=== PATIENT | male | born 1950 | race Caucasian/White ===

== ENCOUNTER 2017-07-08 18:58 | Observation (INO) | payer MEDICARE, OTHER ==
--- NOTE | 2017-07-08 20:06 | EDM.PDOC ---
ED HPI GENERAL MEDICAL PROBLEM - General Chief Complaint: Neuro Symptoms/Deficits Stated Complaint: DIZZINESS Time Seen by Provider: 07/08/17 19:36 Source of Information: Reports: Patient, Old Records, RN Notes Reviewed History Limitations: Reports: No Limitations - History of Present Illness INITIAL COMMENTS - FREE TEXT/NARRATIVE: 66-year-old male, brought in by his neighbor Chief complaint "Dizziness" History of present illness 66-year-old male, history of hypertension for which she is on medication, lives by himself, had onset of symptoms about 1 PM when he got up to go to the bathroom. He noted that he felt a bit off balance and he had some troubles focusing with his eyes. However no significant headache or fever. He was able to drive himself 20 miles to [employer] [place]. He drove much slower than usual and that troubles focusing his eyes on the road. In retrospect he realizes he should not have drive. While he was at the school board meeting, his neighbor/friend saw that he was having troubles expressing himself he was quieter than usual and he seemed to be unsteady on his feet. He recommended he come into the emergency room to be checked. He's had some cold symptoms for the last 2 weeks including some nasal congestion mild cough in the last few days maybe fever at the very beginning of his illness and some sweating spells then but none since. Breathing has been normal no shortness of breath no chest pain no abdominal pain nausea vomiting or diarrhea. History includes transurethral resection for years ago, he was found to have stage I cancer the needed no further treatment, he was followed by urology regularly until it was clear that he needed no further follow-up. He's had left recurrent shoulder dislocation repair. When he did undergo his transurethral resection for years ago, there was a brief episode of some sort of arrhythmia which resolved itself. He does know what was specifically. No history of stroke or heart disease otherwise - Related Data Allergies Allergy/AdvReac Type Severity Reaction Status Date / Time enviromental Allergy Other Uncoded 07/08/17 19:15 Home Meds: Home Meds Acetaminophen 1,000 mg PO ASDIRECTED PRN 05/06/16 [History] Aspirin [Children's Aspirin] 81 mg PO DAILY 05/06/16 [History] Atenolol [Atenolol] 25 mg PO DAILY 05/06/16 [History] Flaxseed Oil [Flaxseed] 1,000 mg PO DAILY 05/06/16 [History] Garlic 10 mg PO DAILY 05/06/16 [History] Glucosa Benoit 2KCl/Chondroitin Benoit [Glucosamine-Chondroitin Cap] 1 tab PO DAILY [History] HCTZ/Triamterene [Maxzide 25-37.5 MG] 1 tab PO DAILY 05/06/16 [History] Indomethacin [Indocin SR] 75 mg PO ASDIRECTED PRN 05/06/16 [History] Lovastatin 40 mg PO DAILY 05/06/16 [History] Multivit-Min/FA/Lycopene/Lut [Centrum Silver Tablet] 1 tab PO DAILY 05/06/16 [ History] *Lisinopril 07/08/17 [History] Aspirin [Obed Chewable Aspirin] 81 mg PO DAILY 07/08/17 [History] Past Medical History Cardiovascular History: Reports: High Cholesterol, Hypertension Gastrointestinal History: Reports: None Genitourinary History: Reports: BPH Musculoskeletal History: Reports: Arthritis, Gout Oncologic (Cancer) History: Reports: Prostate - Past Surgical History GI Surgical History: Reports: Colonoscopy Male Surgical History: Reports: Prostate Biopsy, Prostatectomy, TURP- Transurethral Resection of Prostate Social & Family History - Tobacco Use Smoking Status *Q: Unknown Ever Smoked - Caffeine Use Caffeine Use: Reports: Coffee - Alcohol Use Days Per Week of Alcohol Use: 3 Number of Drinks Per Day: 2 Total Drinks Per Week: 6 - Recreational Drug Use Recreational Drug Use: No ED ROS GENERAL - Review of Systems Review Of Systems: See Below Constitutional: Denies: Fever, Chills, Weakness, Decreased Appetite HEENT: Reports: Rhinitis, Vision Change. Denies: Ear Discharge, Ear Pain, Throat Pain, Vertigo Respiratory: Reports: Cough (Mild). Denies: Shortness of Breath, Wheezing, Pleuritic Chest Pain Cardiovascular: Reports: Blood Pressure Problem (Usually quite stable, it is higher tonight than usual), Lightheadedness. Denies: Chest Pain, Edema, Palpitations, Syncope Endocrine: Reports: No Symptoms GI/Abdominal: Reports: No Symptoms. Denies: Abdominal Pain, Diarrhea, Decreased Appetite, Nausea, Vomiting : Reports: Incontinence (Occasional, mild since his surgery). Denies: Dysuria , Flank Pain Musculoskeletal: Reports: No Symptoms Skin: Reports: No Symptoms Neurological: Reports: Dizziness (By which she means feeling off balance some difficulties walking and some lightheadedness, no spinning sensation), Difficulty Walking (Some feeling of being off balance). Denies: Confusion, Headache, Numbness, Paresthesia, Seizure, Syncope, Tingling, Trouble Speaking, Change in Speech, Gait Disturbance Psychiatric: Reports: No Symptoms Hematologic/Lymphatic: Reports: No Symptoms Immunologic: Reports: No Symptoms ED EXAM, GENERAL - Physical Exam Exam: See Below Exam Limited By: No Limitations General Appearance: Alert, Anxious, Mild Distress, Other (Pleasant alert and appears well, the pulse is tachycardic any irregular and his blood pressure shows mild elevation of up to 153/100) Eye Exam: Bilateral Eye: EOMI, Normal Fundi, Normal Inspection, Vision Changes ( Left-sided hemianopsia both eyes on confrontation) Ears: Normal External Exam, Normal Canal, Hearing Grossly Normal, Normal TMs Ear Exam: Bilateral Ear: Auricle Normal Nose: Normal Inspection, Normal Mucosa Throat/Mouth: Normal Inspection, Normal Oropharynx, Other (Signs of dental wearing but no acute infection) Head: Atraumatic, Normocephalic, Other (No facial swelling or droop). No: Facial Swelling Neck: Normal Inspection, Supple, Non-Tender. No: Carotid Bruit, Lymphadenopathy (R), Lymphadenopathy (L), Tender Lateral, Tender Midline Respiratory/Chest: No Respiratory Distress, Lungs Clear, Normal Breath Sounds, No Accessory Muscle Use Cardiovascular: Irregularly Irregular GI/Abdominal: Normal Bowel Sounds, Soft, Non-Tender Back Exam: Normal Inspection. No: CVA Tenderness (R), CVA Tenderness (L) Extremities: Normal Inspection, Non-Tender, No Pedal Edema Neurological: Alert, Oriented, Other (Symmetrical strength, Normal arm and leg movements, No facial droop,Finger nose finger testing normal, hemianopsia both eyes left visual field tested together or singly, by confrontation). No: Confused, Disoriented, Slow to Respond, Abnormal Reflexes Psychiatric: Normal Affect, Normal Mood Skin Exam: Warm, Dry, Intact, Normal Color, No Rash Lymphatic: No Adenopathy Course - Vital Signs Last Recorded V/S: Last Vital Signs Temp 36.6 C 07/08/17 19:13 Pulse 107 H 07/08/17 22:04 Resp 20 07/08/17 22:04 BP 144/98 H 07/08/17 22:04 Pulse Ox 98 07/08/17 22:04 - Orders/Labs/Meds Orders: Active Orders 24 hr Category Date Time Status EKG Documentation Completion [RC] ASDIRECTED Care 07/08/17 20:00 Active Ang Head [CT] Stat Exams 07/08/17 20:58 Taken Head wo Cont [CT] Stat Exams 07/08/17 20:00 Taken Iopamidol [Isovue-370 (76%)] Med 07/08/17 21:15 Active 80 ml IV . DIRECTED Sodium Chloride 0.9% [Normal Saline] 40 ml Med 07/08/17 21:15 Active IV ASDIRECTED EKG 12 Lead [EK] Routine Ther 07/08/17 19:59 Ordered Medication Orders Sodium Chloride (Normal Saline) 40 mls @ 3 mls/sec IV ASDIRECTED CULLEN Last Admin: 07/08/17 21:27 Dose: 3 mls/sec Iopamidol (Isovue-370 (76%)) 80 ml IV . DIRECTED CULLEN Last Admin: 07/08/17 21:27 Dose: 80 ml Labs: Laboratory Tests 07/08/17 07/08/17 Range/Units 19:59 19:59 WBC 7.7 (4.5-11.0) K/uL RBC 4.91 (4.30-5.90) M/uL Hgb 14.2 (12.0-15.0) g/dL Hct 43.0 (40.0-54.0) % MCV 88 (80-98) fL MCH 29 (27-31) pg MCHC 33 (32-36) % Plt Count 241 (150-400) K/uL Sodium 143 (140-148) mmol/L Potassium 4.8 (3.6-5.2) mmol/L Chloride 108 (100-108) mmol/L Carbon Dioxide 20 L (21-32) mmol/L Anion Gap 19.8 H (5.0-14.0) mmol/L BUN 38 H (7-18) mg/dL Creatinine 1.6 H (0.8-1.3) mg/dL Est Cr Clr Drug Dosing 48.50 mL/min Estimated GFR (MDRD) 43 L (>60) Glucose 120 H (74-106) mg/dL Calcium 9.3 (8.5-10.1) mg/dL Total Bilirubin 0.4 (0.2-1.0) mg/dL AST 27 (15-37) U/L ALT 26 (12-78) U/L Alkaline Phosphatase 80 (46-116) U/L Troponin I < 0.017 (0.000-0.056) ng/mL Total Protein 8.0 (6.4-8.2) g/dL Albumin 4.0 (3.4-5.0) g/dL Globulin 4.0 H (2.3-3.5) g/dL Albumin/Globulin Ratio 1.0 L (1.2-2.2) Meds: Medications Generic Name Dose Route Start Last Admin Trade Name Freq PRN Reason Stop Dose Admin Sodium Chloride 40 mls @ 3 mls/sec 07/08/17 21:15 07/08/17 21:27 Normal Saline IV 3 mls/sec ASDIRECTED CULLEN Administration Iopamidol 80 ml 07/08/17 21:15 07/08/17 21:27 Isovue-370 (76%) IV 80 ml . DIRECTED CULLEN Administration Discontinued Medications Generic Name Dose Route Start Last Admin Trade Name Freq PRN Reason Stop Dose Admin Aspirin 324 mg 07/08/17 21:58 07/08/17 22:04 Aspirin PO 07/08/17 21:59 324 mg ONETIME ONE Administration - Re-Assessments/Exams Free Text/Narrative Re-Assessment/Exam: 07/08/17 20:10 66-year-old male with onset visual disturbance and disequilibrium at 1 PM. This is a 7 hours ago. No headache and no gross neurological deficit of his limbs but homonymous hemianopsia is apparent. He also has an irregular rhythm. Differential diagnosis includes stroke neoplasm infection among others. 07/08/17 21:56 Normal CBC and electrolytes hepatic profile. Creatinine 1.6, GFR 43, glucose 120 Troponin normal EKG shows atrial fibrillation rate 99, the only rhythm strip in the chart is from 3 years ago and this showed normal sinus rhythm CT head shows what appears to be infarct in the right [employer] territory which would be consistent with a left hemianopsia CTs cerebral angiogram ordered, aspirin 324 mg by mouth 07/08/17 21:59 07/09/17 00:08 CT angiogram of the head is negative for any large vessel disease. Discussed with neurology who recommended delayed anticoagulation and consult with cardiology for further management of atrial fibrillation Dr. Adair contacted for admission Departure - Departure Time of Disposition: 00:09 Disposition: Admitted As Inpatient 64 Condition: Undetermined Clinical Impression: Stroke due to embolism of right posterior cerebral artery Homonymous hemianopsia Qualifiers: Laterality: left Qualified Code(s): H53.462 - Homonymous bilateral field defects, left side - Discharge Information Referrals: Ej Harmon MD [Primary Care Provider] - Forms: ED Department Discharge - My Orders Last 24 Hours: My Active Orders 07/08/17 19:59 EKG 12 Lead [EK] Routine 07/08/17 20:00 EKG Documentation Completion [RC] ASDIRECTED Head wo Cont [CT] Stat 07/08/17 20:58 Ang Head [CT] Stat 07/08/17 21:15 Iopamidol [Isovue-370 (76%)] 80 ml IV . DIRECTED Sodium Chloride 0.9% [Normal Saline] 40 ml IV ASDIRECTED - Assessment/Plan Last 24 Hours: My Active Orders 07/08/17 19:59 EKG 12 Lead [EK] Routine 07/08/17 20:00 EKG Documentation Completion [RC] ASDIRECTED Head wo Cont [CT] Stat 07/08/17 20:58 Ang Head [CT] Stat 07/08/17 21:15 Iopamidol [Isovue-370 (76%)] 80 ml IV . DIRECTED Sodium Chloride 0.9% [Normal Saline] 40 ml IV ASDIRECTED
[2017-07-08] MEDS ORDERED: Iopamidol 755 Mg/ML 100 ML Bottle IV SCH (21:15)
[2017-07-08] MEDS ORDERED: Sodium Chloride 0.9% 40 ML IV SCH (21:15)
[2017-07-08] MEDS ORDERED: Aspirin 81 MG Tab.Chew PO ONE (21:58)
--- NOTE | 2017-07-09 00:55 | PCM.HP ---
H&P History of Present Illness - General Date of Service: 07/09/17 Admit Problem/Dx: Admission Diagnosis/Problem Admission Diagnosis/Problem Cerebrovascular accident Source of Information: Patient, Provider History Limitations: Reports: No Limitations - History of Present Illness Initial Comments - Free Text/Narative: Lucho presented to the emergency room this evening with blurry vision and dizziness. He reports onset of dizziness and difficulty with vision around 1 PM this afternoon. He was sitting in a chair resting when symptoms began. The dizziness is described as a lightheadedness rather than vertigo. He did not have a headache at the time. Symptoms persisted through the afternoon but he was able to drive to [facility] for a school board meeting. While he was there he discussed his symptoms with a friend who recommended he come here for evaluation. He has not had recent difficulties with chest pain, shortness of breath or palpitations. He walks 2 miles daily with no physical limitations. No recent difficulties with fevers or cough. He in general has felt quite well. Examination in the emergency room revealed normal strength but he did have a left hemianopsia. Noncontrast CT scan suggested right occipital infarct. CT angiogram of the brain did not show definite branch artery occlusion. The case was discussed with neurology. He will be admitted for further workup and management. - Related Data Allergies/Adverse Reactions: Allergies Allergy/AdvReac Type Severity Reaction Status Date / Time enviromental Allergy Other Uncoded 07/08/17 19:15 Home Medications: Home Meds Acetaminophen 1,000 mg PO ASDIRECTED PRN 05/06/16 [History] Aspirin [Children's Aspirin] 81 mg PO DAILY 05/06/16 [History] Atenolol [Atenolol] 25 mg PO DAILY 05/06/16 [History] Flaxseed Oil [Flaxseed] 1,000 mg PO DAILY 05/06/16 [History] Garlic 10 mg PO DAILY 05/06/16 [History] Glucosa Benoit 2KCl/Chondroitin Benoit [Glucosamine-Chondroitin Cap] 1 tab PO DAILY [History] HCTZ/Triamterene [Maxzide 25-37.5 MG] 1 tab PO DAILY 05/06/16 [History] Indomethacin [Indocin SR] 75 mg PO ASDIRECTED PRN 05/06/16 [History] Lovastatin 40 mg PO DAILY 05/06/16 [History] Multivit-Min/FA/Lycopene/Lut [Centrum Silver Tablet] 1 tab PO DAILY 05/06/16 [ History] *Lisinopril 07/08/17 [History] Aspirin [Obed Chewable Aspirin] 81 mg PO DAILY 07/08/17 [History] Past Medical History Cardiovascular History: Reports: High Cholesterol, Hypertension Gastrointestinal History: Reports: None Genitourinary History: Reports: BPH Musculoskeletal History: Reports: Arthritis, Gout Oncologic (Cancer) History: Reports: Prostate - Past Surgical History GI Surgical History: Reports: Colonoscopy Male Surgical History: Reports: Prostate Biopsy, Prostatectomy, TURP- Transurethral Resection of Prostate Social & Family History - Family History Cardiac: Reports: CAD (Mother in her 70s), Heart Failure (Mother) Oncologic: Reports: Prostate (Father) - Tobacco Use Smoking Status *Q: Unknown Ever Smoked - Caffeine Use Caffeine Use: Reports: Coffee - Alcohol Use Days Per Week of Alcohol Use: 3 Number of Drinks Per Day: 2 Total Drinks Per Week: 6 - Recreational Drug Use Recreational Drug Use: No H&P Review of Systems - Review of Systems: Review Of Systems: See Below Free Text/Narrative: A complete 12 point review of systems was obtained. Pertinent positives and negatives are noted in the history of present illness. All other systems were reviewed and were negative except as noted. Exam - Exam Exam: See Below - Vital Signs Vital Signs: Last Vital Signs Temp 36.6 C 07/08/17 19:13 Pulse 107 H 07/08/17 23:00 Resp 18 07/09/17 00:00 BP 148/105 H 07/09/17 00:00 Pulse Ox 94 L 07/09/17 00:00 Weight: 86.183 kg - Exam Quality Assessment: No: Supplemental Oxygen General: Alert, Oriented, Cooperative. No: Mild Distress HEENT: Conjunctiva Clear, Mucosa Moist & [place], Pupils Equal. No: Scleral Icterus Neck: Supple, Trachea Midline. No: Lymphadenopathy, Carotid Bruit Lungs: Clear to Auscultation, Normal Respiratory Effort Cardiovascular: Irregular Rhythm, Tachycardia (Mild). No: Systolic Murmur GI/Abdominal Exam: Normal Bowel Sounds, Soft, Non-Tender, No Distention, No Mass Back Exam: Normal Inspection, Full Range of Motion Extremities: No Pedal Edema. No: Increased Warmth Peripheral Pulses: 2+: Dorsalis Pedis (L), Dorsalis Pedis (R) Skin: Warm, Dry Neuro Extensive - Mental Status: Alert, Oriented x3, Nl Response to Commands Neuro Extensive - Motor, Sensory, Reflexes: CN II-XII Intact, Other (Left hemianopsia). No: Dysarthria, Abnormal Motor, Tremor Psychiatric: Alert, Normal Affect - Patient Data Lab Results Last 24 hrs: Laboratory Results - last 24 hr 07/08/17 07/08/17 Range/Units 19:59 19:59 WBC 7.7 (4.5-11.0) K/uL RBC 4.91 (4.30-5.90) M/uL Hgb 14.2 (12.0-15.0) g/dL Hct 43.0 (40.0-54.0) % MCV 88 (80-98) fL MCH 29 (27-31) pg MCHC 33 (32-36) % Plt Count 241 (150-400) K/uL Sodium 143 (140-148) mmol/L Potassium 4.8 (3.6-5.2) mmol/L Chloride 108 (100-108) mmol/L Carbon Dioxide 20 L (21-32) mmol/L Anion Gap 19.8 H (5.0-14.0) mmol/L BUN 38 H (7-18) mg/dL Creatinine 1.6 H (0.8-1.3) mg/dL Est Cr Clr Drug Dosing 48.50 mL/min Estimated GFR (MDRD) 43 L (>60) Glucose 120 H (74-106) mg/dL Calcium 9.3 (8.5-10.1) mg/dL Total Bilirubin 0.4 (0.2-1.0) mg/dL AST 27 (15-37) U/L ALT 26 (12-78) U/L Alkaline Phosphatase 80 (46-116) U/L Troponin I < 0.017 (0.000-0.056) ng/mL Total Protein 8.0 (6.4-8.2) g/dL Albumin 4.0 (3.4-5.0) g/dL Globulin 4.0 H (2.3-3.5) g/dL Albumin/Globulin Ratio 1.0 L (1.2-2.2) Result Diagrams: 07/08/17 19:59 07/08/17 19:59 Imaging Impressions Last 24 hrs: CT head - images personally reviewed - there appears to be a large area of low attenuation in the right occipital lobe concerning for infarction. No evidence for mass or hemorrhage. CT angiogram brain - images also personally reviewed - no obvious evidence for branch artery occlusion on the CT angiogram. EKG INTERPRETATION EKG Date: 07/09/17 Rhythm: A-Fib Rate (Beats/Min): 99 [place]: Normal P-Wave: Variable QRS: Normal ST-T: Normal QT: Normal *Q Meaningful Use (ADM) - VTE *Q VTE Criteria *Q: VTE Pharmacological Contraindications *Q: Risk of Bleeding - VTE Risk Assess *Q Each Risk Factor Represents 1 Point: None Total Score 1 Point Risk Factors: 0 Each Risk Factor Represents 2 Points: Age 60 - 74 Years, Malignancy (present or previous) Total Score 2 Point Risk Factors: 4 Each Risk Factor Represents 3 Points: None Total Score 3 Point Risk Factors: 0 Each Risk Factor Represents 5 Points: None Total Score 5 Point Risk Factors: 0 Venous Thromboembolism Risk Factor Score *Q: 4 - Stroke *Q Stroke Criteria *Q: - AMI *Q AMI Criteria *Q: - Problem List (1) Stroke due to embolism of right posterior cerebral artery SNOMED Code(s): 224973649 ICD Code: I63.431 - CEREBRAL INFRC DUE TO EMBOLISM OF RIGHT POST CEREBRAL ARTERY Status: Acute Current Visit: Yes (2) Homonymous hemianopsia SNOMED Code(s): 14609083 ICD Code: H53.469 - HOMONYMOUS BILATERAL FIELD DEFECTS, UNSPECIFIED SIDE Status: Acute Current Visit: Yes Qualifiers: Laterality: left Qualified Code(s): H53.462 - Homonymous bilateral field defects, left side (3) Paroxysmal atrial fibrillation SNOMED Code(s): 927503289 ICD Code: I48.0 - PAROXYSMAL ATRIAL FIBRILLATION Status: Acute Current Visit: Yes (4) Essential hypertension SNOMED Code(s): 15343831 ICD Code: I10 - ESSENTIAL (PRIMARY) HYPERTENSION Status: Chronic Current Visit: Yes Problem List Initiated/Reviewed/Updated: Yes Orders Last 24hrs: Active Orders 24 hr Category Date Time Status Patient Status Manage Transfer [TRANSFER] Routine ADT 07/09/17 00:39 Ordered EKG Documentation Completion [RC] ASDIRECTED Care 07/08/17 20:00 Active Ang Head [CT] Stat Exams 07/08/17 20:58 Taken Head wo Cont [CT] Stat Exams 07/08/17 20:00 Taken Iopamidol [Isovue-370 (76%)] Med 07/08/17 21:15 Active 80 ml IV . DIRECTED Sodium Chloride 0.9% [Normal Saline] 40 ml Med 07/08/17 21:15 Active IV ASDIRECTED Resuscitation Status Routine Resus Stat 07/09/17 00:42 Ordered EKG 12 Lead [EK] Routine Ther 07/08/17 19:59 Ordered Medication Orders Sodium Chloride (Normal Saline) 40 mls @ 3 mls/sec IV ASDIRECTED CULLEN Last Admin: 07/08/17 21:27 Dose: 3 mls/sec Iopamidol (Isovue-370 (76%)) 80 ml IV . DIRECTED [facility] Last Admin: 07/08/17 21:27 Dose: 80 ml Assessment/Plan Comment:: ASSESSMENT AND PLAN - Right occipital CVA with left homonymous hemianopsia - no motor deficits at this time with stroke deficits limited to visual deficits. Large occipital stroke suspected based on CT. Suspect embolic event with atrial fibrillation noted on cardiac monitoring and EKG. The case was discussed with neurology in [place] and they recommended additional workup including MRI and echocardiogram. Based on the size of the infarct anticoagulation should be delayed for approximately 2 weeks. -Daily aspirin -Blood pressure control with goal systolic pressure less than 180 -MRI and MRA in the morning -Echo when available -Cardiac monitoring overnight -Lipid panel in the morning -Hold off on systemic anticoagulation for approximately 2 weeks Paroxysmal atrial fibrillation - duration unclear at this time. No recent history of dysrhythmia. -Rate control with atenolol, may need adjustment -Cardiac monitoring overnight -Echo when available Essential hypertension - planning to continue usual medications with parameters as discussed above. Maintenance issues - - DVT prophylaxis - mechanical - GI prophylaxis - not indicated - Nutrition - regular diet - Tubbs catheter - not indicated CODE STATUS - full code Admission justification - patient will be referred observation status for expedited workup Disposition - anticipate discharge home after the hospital stay Primary care physician - Dr. Faustino Adair M.D.
[2017-07-09] MEDS ORDERED: Ondansetron 4 MG Tab.DIS PO PRN (01:09)
[2017-07-09] MEDS ORDERED: Acetaminophen 325 MG Tab PO PRN (01:09)
[2017-07-09] MEDS ORDERED: Atenolol 25 MG Tab PO SCH (09:00)
[2017-07-09] MEDS ORDERED: Aspirin 81 MG Tab.EC PO SCH (09:00)
[2017-07-09] MEDS ORDERED: Hydrochlorothiazide/Triamterene 25-37.5 Tab PO SCH (09:00)
[2017-07-09 11:24] VITALS: BP 115/73
--- NOTE | 2017-07-09 13:30 | MR ---
Brain wo Cont HISTORY: stroke TECHNIQUE: Multiplanar noncontrasted sequences of the brain were obtained. Comparison CT head studies dated 06/07/2018.. FINDINGS: On the diffusion-weighted sequences there is increased signal medial right occipital lobe consistent with restricted diffusion. This shows low signal on the ADC map. Findings are consistent with an acut e infarct. There is some dark signal consistent with hemosiderin deposition in this area suggesting b reakdown of the blood-brain barrier. No focal hemorrhage is identified. No mass lesion, mass effect, midline shift, or ventricular abnormality is identified. There are no ab normal extra-axial fluid collections. Visualized paranasal sinuses and mastoid air cells are clear. IMPRESSION: Acute to subacute ischemic infarct medial right occipital lobe correlates with the earlier CT finding s. There is some hemosiderin deposition in this area suggesting breakdown of the blood-brain barrier.
--- NOTE | 2017-07-09 13:35 | MR ---
Ang Head wo Cont HISTORY: stroke TECHNIQUE: 3D [id number] MR angiography noncontrasted sequences of the intracranial arteries were obtained centered about the [place]. Source and 3-D multiplanar reconstructions were review ed. FINDINGS: Distal internal carotid arteries are widely patent through the carotid siphon. No abnormality of the distal vertebral arteries or basilar artery can be seen. Visualized arteries about the [place] is and the proximal branches of the anterior, middle, and posterior cerebral artery circulations show no evidence for aneurysm, vascular malformation, vascular cutoff, or extrinsic mass effect. IMPRESSION: No intracranial aneurysm or vascular malformation is identified. I see no large vessel occlusion to c orrelate with the medial right occipital lobe ischemic infarct seen on earlier CT and MRI brain studi es. No significant change compared with earlier CT angiography of the brain.
--- NOTE | 2017-07-09 14:32 | PCM.DCSUM1 ---
Discharge Summary - Hospital Course Brief History: 58-year-old male with history of essential hypertension who presented with blurry vision and dizziness. Workup in the emergency room was suggestive of a right occipital lobe stroke. Neurology was consulted but he was outside of the window for intervention so he was admitted for further workup and management. 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 SNOMED Code(s): 736789422 ICD Code: I63.431 - CEREBRAL INFRC DUE TO EMBOLISM OF RIGHT POST CEREBRAL ARTERY Status: Acute Current Visit: Yes Problem Details: left homonymous hemianopsia (2) Homonymous hemianopsia SNOMED Code(s): 60805968 ICD Code: H53.469 - HOMONYMOUS BILATERAL FIELD DEFECTS, UNSPECIFIED SIDE Status: Acute Current Visit: Yes Qualifiers: Laterality: left Qualified Code(s): H53.462 - Homonymous bilateral field defects, left side (3) Paroxysmal atrial fibrillation SNOMED Code(s): 413817519 ICD Code: I48.0 - PAROXYSMAL ATRIAL FIBRILLATION Status: Acute Current Visit: Yes (4) Essential hypertension SNOMED Code(s): 22476448 ICD Code: I10 - ESSENTIAL (PRIMARY) HYPERTENSION Status: Chronic Current Visit: Yes - Patient Summary/Data Consults: Consultations 07/09/17 01:09 OT Evaluation and Treatment [CONS] Routine Please Evaluate and Treat. OT Reason for Consult: ADL's Special Instructions: Right occipital stroke with left hemianopsia This query below is only for informational purposes and is not editable. Hospital Course: Lucho presented to the emergency room with visual deficits and dizziness. He was approximately 6 hours out from symptom onset at the time of arrival to the emergency room. Noncontrast head CT scan was suggestive of a right occipital lobe infarction. CT angiogram did not show large vessel blockage. Neurology was consult and but he was thought to be too far out of the window for transfer and additional intervention. he was noted to be in atrial fibrillation at the time of presentation and this was thought to be an embolic stroke. He was admitted to the hospital for observation. at the time of admission he had left homonymous hemianopsia but no other obvious neurologic deficits. There were no acute events overnight and his atrial fibrillation has been rate controlled though initially it was suboptimally controlled with heart rates in the 100s. His blood pressure has been stable with a mild elevation initially but normalization overnight. The morning after admission he had an echocardiogram completed. The official read is pending at the time of discharge but to my interpretation he appears to have normal left ventricular function. I don't appreciate any significant valvular abnormalities. The study was suboptimal to determine if there is additional left atrial clot present. He had an MRI and an MRA performed the morning after admission as well. This showed very similar findings to the CT and CT angiogram. again noted was a moderately large hypodense area in the right occipital lobe. No obvious occlusion of one of the large branch vessels was noted on the MRA. We did check his cholesterol levels the morning after admission and he has an LDL of 136. I did change his statin medication from lovastatin to 80 atorvastatin. He will remain on his aspirin daily. Because this was likely an embolic stroke related to his atrial fibrillation and his CHADSS-VASC score is elevated we do recommend that he start on a systemic anticoagulant. We discussed warfarin versus one of the new novel oral anticoagulants. At this point he would like to utilize warfarin. The neurologist consulted in the emergency room last night did recommend waiting 2 weeks to initiate anticoagulation given the size of the infarction. He does have a prescription for 5 mg tablets and a referral to the Coumadin clinic has been placed. He will start taking the warfarin as prescribed on July 21 and will follow-up 4-5 days later for an INR level. He will continue his usual blood pressure medications. I did recommend early clinic follow-up to ensure that he's continuing to do well. He was evaluated by occupational therapy who felt that he was safe to be at home at this point. They did suggest that if he has ongoing difficulty with his vision they can work with him to provide some compensatory tactics to help deal with his visual field deficits. He will be discharged home with a friend today. He was encouraged to contact me if he has any questions between now and his follow-up with Dr. Harmon. - Patient Instructions Diet: Heart Healthy Diet Activity: As Tolerated Driving: Do Not Drive (until after your follow up with Dr Harmon) Showering/Bathing: May Shower Notify Provider of: Fever, Increased Pain, Nausea and/or Vomiting Other/Special Instructions: 1. You were in the hospital for management of a right occipital lobe stroke. This has affected the left side of your visual lamb. We suspect that the stroke was caused by a blood clot that likely originated in your heart because of atrial fibrillation. Because of the stroke was moderately large in size I recommend that we not start anticoagulation for 2 weeks. You should continue to take your aspirin daily but do not start the warfarin until July 21. If you your vision does not improve quickly the occupational therapy team here at the hospital can provide some exercises to help you accommodate to the deficit. 2. Stop taking your lovastatin. Your cholesterol numbers remained elevated despite being on this medication. I recommend that you start taking atorvastatin Lipitor 40 mg once daily. 3. Continue taking your other medications as previously prescribed with the exception of the lovastatin. 4. Follow up with Dr. Harmon in one week. If you have difficulties during the rest of this week or over the weekend please call the hospital and ask to speak with me and I will help as best I can. 5. Please schedule an appointment with the Coumadin Clinic at [facility] in [place]. You will need a follow-up appointment on July 24 or . The Coumadin Clinic will monitor your INR (blood test we use to follow your Coumadin level). Your goal INR will be between 2 and 3. The duration of Coumadin treatment is not determined at this time and will be dependent on control/resolution of your atrial fibrillation. 6. Please seek immediate medical attention if you have weakness that involves one side of your body, if you develop difficulty speaking, become confused or your vision suddenly worsens. - Discharge Plan Prescriptions/Med Rec: atorvaSTATin Calcium [Atorvastatin Calcium] 40 mg PO DAILY #90 tablet Warfarin [Coumadin] 5 mg PO DAILY #30 tab Home Medications: Home Meds Acetaminophen 1,000 mg PO ASDIRECTED PRN 05/06/16 [History] Aspirin [Children's Aspirin] 81 mg PO DAILY 05/06/16 [History] Atenolol 25 mg PO DAILY 05/06/16 [History] Flaxseed Oil [Flaxseed] 1,000 mg PO DAILY 05/06/16 [History] Garlic 10 mg PO DAILY 05/06/16 [History] HCTZ/Triamterene [Maxzide 25-37.5 MG] 1 tab PO DAILY 05/06/16 [History] Indomethacin [Indocin SR] 75 mg PO ASDIRECTED PRN 05/06/16 [History] Multivit-Min/FA/Lycopene/Lut [Centrum Silver Tablet] 1 tab PO DAILY 05/06/16 [ History] Aspirin [Obed Chewable Aspirin] 81 mg PO DAILY 07/08/17 [History] Lisinopril 5 mg PO DAILY 07/09/17 [History] Warfarin [Coumadin] 5 mg PO DAILY #30 tab 07/09/17 [Rx] atorvaSTATin Calcium [Atorvastatin Calcium] 40 mg PO DAILY #90 tablet 07/09/17 [ Rx] Patient Handouts: Ischemic Stroke Treated With Warfarin, Warfarin tablets, Atorvastatin tablets Referrals: Ej Harmon MD [Primary Care Provider] - (1 week - follow-up hospital stay for cerebrovascular accident with visual deficits) - Discharge Summary/Plan Comment DC Time >30 min.: Yes (40 - extensive counseling and follow-up coordination with new stroke) - Patient Data Vitals - Most Recent: Last Vital Signs Temp 36.6 C 07/09/17 11:15 Pulse 82 07/09/17 11:15 Resp 18 07/09/17 11:15 BP 115/73 07/09/17 11:15 Pulse Ox 98 07/09/17 11:15 Weight - Most Recent: 85.82 kg I&O - Last 24 hours: Intake & Output 07/08/17 07/09/17 07/09/17 22:59 06:59 14:59 Intake Total 720 Output Total 900 Balance -900 720 Lab Results - Last 24 hrs: Laboratory Results - last 24 hr 07/09/17 Range/Units 05:15 Sodium 142 (140-148) mmol/L Potassium 4.3 (3.6-5.2) mmol/L Chloride 109 H (100-108) mmol/L Carbon Dioxide 21 (21-32) mmol/L Anion Gap 16.3 H (5.0-14.0) mmol/L BUN 30 H (7-18) mg/dL Creatinine 1.4 H (0.8-1.3) mg/dL Est Cr Clr Drug Dosing TNP Estimated GFR (MDRD) 50 L (>60) Glucose 101 (74-106) mg/dL Calcium 9.1 (8.5-10.1) mg/dL Triglycerides 136 (15-150) mg/dL Cholesterol 193 (0-200) mg/dL LDL Cholesterol Direct 136 H (0-100) mg/dL HDL Cholesterol 43 (40-60) mg/dL Med Orders - Current: Current Medications Acetaminophen (Tylenol) 650 mg PO Q4H PRN PRN Reason: Pain (Mild 1-3)/fever Aspirin (Halfprin) 81 mg PO DAILY [facility] Last Admin: 07/09/17 09:43 Dose: 81 mg Atenolol (Tenormin) 25 mg PO DAILY [facility] Lovastatin (Mevacor) 40 mg PO DAILY [facility] Ondansetron HCl (Zofran Odt) 4 mg PO Q6H PRN PRN Reason: Nausea able to take PO Triamterene/HCTZ (Maxzide 25-37.5 Mg) 1 each PO DAILY [facility] Discontinued Medications Aspirin (Aspirin) 324 mg PO ONETIME ONE Stop: 07/08/17 21:59 Last Admin: 07/08/17 22:04 Dose: 324 mg Sodium Chloride (Normal Saline) 40 mls @ 3 mls/sec IV ASDIRECTED [facility] Last Admin: 07/08/17 21:27 Dose: 3 mls/sec Iopamidol (Isovue-370 (76%)) 80 ml IV . DIRECTED [facility] Last Admin: 07/08/17 21:27 Dose: 80 ml - Exam Quality Assessment: Denies: Supplemental Oxygen General: Reports: Alert, Oriented, Cooperative, No Acute Distress Neck: Reports: Supple Lungs: Reports: Normal Respiratory Effort Cardiovascular: Reports: Regular Rate, Irregular Rhythm Extremities: No Pedal Edema Neurological: Reports: No New Focal Deficit, Other (persistent left temporal and right nasal visual field deficits to near the midline) Psy/Mental Status: Reports: Alert, Normal Affect *Q Meaningful Use (DIS) - VTE *Q VTE Criteria *Q: VTE Pharmacological Contraindications *Q: Risk of Bleeding - Stroke *Q Stroke Criteria *Q: - AMI *Q AMI Criteria *Q:
== END 2017-07-09 15:00 | disposition home or self-care (01) ==
LOC: JP.ED 18:58 → JP.2SS 07-09 00:39
PROVIDERS: ADMIT Internal Medicine; ATTEND Internal Medicine
DX: I63.431 Cerebral infarction due to embolism of right posterior cerebral artery (principal); H53.462 Homonymous bilateral field defects, left side; I48.0 Paroxysmal atrial fibrillation; E78.00 Pure hypercholesterolemia, unspecified; N40.0 Benign prostatic hyperplasia without lower urinary tract symptoms; I10 Essential (primary) hypertension; Z79.01 Long term (current) use of anticoagulants; Z79.899 Other long term (current) drug therapy; Z79.82 Long term (current) use of aspirin; Z91.09 Other allergy status, other than to drugs and biological substances
CPT/HCPCS: 36415; 70450; 70496; 70544; 70551; 80048; 80053; 80061; 84484; 85027; 93005; 93010; 93306; 97165; 99285; A9270; J7030; Q9967; 99236; G0378

== ENCOUNTER 2018-10-24 17:53 | Emergency (ER) | payer BC, MEDICARE, OTHER ==
[2018-10-24 17:59] VITALS: BP 176/123
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
== END 2018-10-24 18:40 | disposition home or self-care (01) ==
LOC: JP.ED 17:53
DX: S20.219A Contusion of unspecified front wall of thorax, initial encounter (principal); S00.531A Contusion of lip, initial encounter; S00.31XA Abrasion of nose, initial encounter; Z91.09 Other allergy status, other than to drugs and biological substances; V89.2XXA Person injured in unspecified motor-vehicle accident, traffic, initial encounter
CPT/HCPCS: 99284

== ENCOUNTER 2020-05-26 06:15 | Emergency (ER) | payer MEDICARE ==
--- NOTE | 2020-05-26 07:33 | EDM.PDOC ---
ED HPI GENERAL MEDICAL PROBLEM - General Chief Complaint: Cardiovascular Problem Stated Complaint: RAISING HEART/SOB Time Seen by Provider: 05/26/20 07:10 Source of Information: Reports: Patient, RN History Limitations: Reports: No Limitations - History of Present Illness INITIAL COMMENTS - FREE TEXT/NARRATIVE: 69-year-old male with a history of intermittent atrial fibrillation had his gallbladder removed about 5 days ago and at that time did have atrial fibrillation for which she was treated with additional metoprolol. He takes 1 metoprolol in the evening and 1-1/2 this morning which he took at 5:00 approximately 2 hours ago. He did feel intermittent irregular heartbeat during the night and a couple of episodes of mild pressure in his left upper anterior chest. No radiation of pain. No increase shortness of breath. No diaphoresis. This is a known history of atrial fibrillation for which she has been treated for a rapid rate in the past. He also has a history of stroke and residual left temporal defect but nothing else he reports. He reports also being very anxious about this whole thing. Onset: Today Duration: Hour(s):, Day(s):, Recurring Location: Reports: Chest Quality: Reports: Pressure Severity: Mild Improves with: Reports: None Worsens with: Reports: None Associated Symptoms: Reports: No Other Symptoms Treatments SAMPLE WASHER: Reports: Other Medication(s) Other Treatments SAMPLE WASHER: Took 1.5 tabs of metoperol 25mg Anterior Chest Pain Score (Numeric/FACES): 2 - Related Data Allergies Allergy/AdvReac Type Severity Reaction Status Date / Time enviromental Allergy Other Uncoded 05/26/20 06:41 Home Meds: Home Meds Acetaminophen 1,000 mg PO ASDIRECTED PRN 05/06/16 [History] Aspirin [Obed Chewable Aspirin] 81 mg PO DAILY 07/08/17 [History] Warfarin [Coumadin] 5 mg PO DAILY #30 tab 07/09/17 [Rx] Metoprolol Tartrate 1.5 tab PO DAILY 06/15/18 [History] Metoprolol Tartrate 25 mg PO BEDTIME 05/26/20 [History] Triamterene/Hydrochlorothiazid [Triamterene-HCTZ 37.5-25 MG] 1 tab PO DAILY 05/26/20 [History] Past Medical History HEENT History: Reports: Impaired Vision Cardiovascular History: Reports: Afib, High Cholesterol, Hypertension Gastrointestinal History: Reports: None, Diverticulosis Genitourinary History: Reports: BPH Musculoskeletal History: Reports: Arthritis, Gout Neurological History: Reports: TIA Oncologic (Cancer) History: Reports: Prostate - Infectious Disease History Infectious Disease History: Reports: Chicken Pox, Measles, Mumps, Pertussis (Whooping Cough) - Past Surgical History Head Surgeries/Procedures: Reports: None HEENT Surgical History: Reports: None Cardiovascular Surgical History: Reports: None GI Surgical History: Reports: Cholecystectomy, Colonoscopy Male Surgical History: Reports: Prostate Biopsy, Prostatectomy, TURP- Transurethral Resection of Prostate Neurological Surgical History: Reports: None Musculoskeletal Surgical History: Reports: None Oncologic Surgical History: Reports: None Social & Family History - Family History Cardiac: Reports: CAD, Heart Failure Oncologic: Reports: Prostate - Tobacco Use Tobacco Use Status *Q: Never Tobacco User Second Hand Smoke Exposure: No - Caffeine Use Caffeine Use: Reports: Coffee, Soda - Recreational Drug Use Recreational Drug Use: No ED ROS GENERAL - Review of Systems Review Of Systems: See Below Constitutional: Reports: No Symptoms HEENT: Reports: No Symptoms, Other (Patient describes a portion of his left temporal area has a vision loss is a residual from a stroke 4 years ago) Respiratory: Reports: No Symptoms Cardiovascular: Reports: Other (Mild discomfort noted in the left anterior chest intermittently last night and prior) Endocrine: Reports: No Symptoms GI/Abdominal: Reports: No Symptoms : Reports: No Symptoms Musculoskeletal: Reports: No Symptoms Skin: Reports: No Symptoms Neurological: Reports: Other (Vision changes noted above) Psychiatric: Reports: No Symptoms Hematologic/Lymphatic: Reports: No Symptoms Immunologic: Reports: No Symptoms ED EXAM, GENERAL - Physical Exam Exam: See Below Exam Limited By: No Limitations General Appearance: Alert, WD/WN, Anxious Eye Exam: Left Eye: Vision Changes (Left small temporal vision defect from prior stroke) Ears: Hearing Loss Nose: Normal Inspection Throat/Mouth: Normal Inspection Head: Atraumatic, Normocephalic Neck: Normal Inspection Respiratory/Chest: No Respiratory Distress, Other (Slight rales both bases) Cardiovascular: No Murmur, Tachycardia, Extra Beats, Other (Sounds compatible with atrial fibrillation of variable rate) GI/Abdominal: Normal Bowel Sounds, Soft, Non-Tender, Other (Ecchymosis noted from heparin injections recently and scars from recent gallbladder removal) Back Exam: Normal Inspection Extremities: Normal Inspection Neurological: Alert, Oriented, Normal Cognition, Normal Reflexes, No Motor/Sensory Deficits Psychiatric: Normal Affect Skin Exam: Warm, Dry, Intact, Normal Color, No Rash Lymphatic: No Adenopathy Course - Vital Signs Text/Narrative:: Patient given 0.5 of Ativan by mouth shortly after my exam and 5 mg of metoprolol At 8:44 AM patient still has a variable rate between 110 and 130 Radiologist reports chest x-ray has no acute pathology. His BNP [place] to be [id number] 1038 and the patient remains between 110 and 130 with a blood pressure about 130. Metoprolol IV seems of had no impact. 25 diltiazem ordered Patient given diltiazem 25 mg IV with slowing of his rate to about 80 with persistence of atrial fibrillation. He remains comfortable with adequate blood pressure. He will be discharged on diltiazem ER 24-hour 180 mg 1 daily #[address] Harmon Last Recorded V/S: Last Vital Signs Temp 35.9 C L 05/26/20 06:39 Pulse 120 H 05/26/20 08:05 Resp 25 H 05/26/20 11:02 BP 122/84 05/26/20 11:02 Pulse Ox 93 L 05/26/20 11:02 - Orders/Labs/Meds Orders: Active Orders 24 hr Category Date Time Status EKG Documentation Completion [RC] ASDIRECTED Care 05/26/20 07:05 Active EKG 12 Lead [EK] Routine Ther 05/26/20 07:05 Ordered Labs: Laboratory Tests 05/26/20 05/26/20 05/26/20 Range/Units 07:27 07:27 07:27 WBC 7.5 (4.5-11.0) K/uL RBC 4.53 (4.30-5.90) M/uL Hgb 12.9 (12.0-15.0) g/dL Hct 40.5 (40.0-54.0) % MCV 89 (80-98) fL MCH 29 (27-31) pg MCHC 32 (32-36) % Plt Count 298 (150-400) K/uL PT 16.6 H (9.5-12.0) sec INR 1.54 H (0.80-1.20) Sodium 138 L (140-148) mmol/L Potassium 3.6 (3.6-5.2) mmol/L Chloride 102 (100-108) mmol/L Carbon Dioxide 23 (21-32) mmol/L Anion Gap 16.6 H (5.0-14.0) mmol/L BUN 10 D (7-18) mg/dL Creatinine 1.1 (0.8-1.3) mg/dL Est Cr Clr Drug Dosing 65.60 mL/min Estimated GFR (MDRD) > 60 (>60) Glucose 101 (74-106) mg/dL Calcium 8.8 (8.5-10.1) mg/dL Total Bilirubin 1.4 H (0.2-1.0) mg/dL AST 23 (15-37) U/L ALT 30 (12-78) U/L Alkaline Phosphatase 115 (46-116) U/L Troponin I < 0.017 (0.000-0.056) ng/mL NT-Pro-B Natriuret Pep 6313 H (5-125) pg/mL Total Protein 7.0 (6.4-8.2) g/dL Albumin 2.8 L (3.4-5.0) g/dL Globulin 4.2 H (2.3-3.5) g/dL Albumin/Globulin Ratio 0.7 L (1.2-2.2) Meds: Medications Discontinued Medications Generic Name Dose Route Start Last Admin Trade Name Asadq PRN Reason Stop Dose Admin Diltiazem HCl 25 mg 05/26/20 10:37 05/26/20 10:47 Diltiazem IVPUSH 05/26/20 10:38 25 mg ONETIME ONE Administration Metoprolol Tartrate 5 mg/ 55 mls @ 100 mls/hr 05/26/20 07:43 05/26/20 08:05 Sodium Chloride IV 05/26/20 08:15 100 mls/hr ONETIME ONE Administration Lorazepam 0.5 mg 05/26/20 07:44 05/26/20 08:05 Ativan PO 05/26/20 07:45 0.5 mg ONETIME ONE Administration Departure - Departure Time of Disposition: 12:25 Disposition: Home, Self-Care 01 Condition: Good Clinical Impression: Atrial fibrillation by electrocardiogram, Tachycardia, Tachycardia with heart rate 141-160 beats per minute Instructions: Atrial Fibrillation, [id number] Referrals: PCP,None [Primary Care Provider] - Forms: ED Department Discharge Additional Instructions: Take the diltiazem prescription daily and follow-up with your physician Sepsis Event Note (ED) - Evaluation Sepsis Screening Result: No Definite Risk - Focused Exam Vital Signs: Vital Signs Temp Pulse Pulse Resp BP BP Pulse Ox 05/26/20 11:02 25 H 122/84 93 L 05/26/20 10:52 28 H 137/96 H 94 L 05/26/20 10:45 32 H 157/122 H 95 05/26/20 10:01 147/105 H 05/26/20 09:30 140/103 H 05/26/20 08:41 19 140/103 H 96 05/26/20 08:05 120 H 144/109 H 05/26/20 06:39 35.9 C L 116 H 20 160/112 H 95 - My Orders Last 24 Hours: My Active Orders 05/26/20 07:05 EKG Documentation Completion [RC] ASDIRECTED EKG 12 Lead [EK] Routine - Assessment/Plan Last 24 Hours: My Active Orders 05/26/20 07:05 EKG Documentation Completion [RC] ASDIRECTED EKG 12 Lead [EK] Routine
[2020-05-26] MEDS ORDERED: Metoprolol Tartrate 5 MG in Sodium Chloride 0.9% 50 ML IV ONE (07:43)
[2020-05-26] MEDS ORDERED: LORazepam 0.5 MG Tab PO ONE (07:44)
[2020-05-26 08:06] VITALS: PULSE 120
--- NOTE | 2020-05-26 08:32 | CRLCR ---
INDICATION: Chest pain. Shortness of breath. COMPARISON: None available TECHNIQUE: Portable AP erect chest performed at 7:56 a.m. FINDINGS: The heart and pulmonary vessels are at the upper range of normal in size. There is no evidence of fluid within the interstitium and no evidence of pleural fluid. There are no suspicious infiltrates or masses. There are old healed right rib fractures. There is no evidence of pneumothorax. IMPRESSION: No acute process identified. Dictated by Joseph Kelley MD @ 05/26/2020 8:31:34 AM Dictated by: Joseph Kelley MD @ 05/26/2020 08:31:42 (Electronically Signed)
[2020-05-26] MEDS ORDERED: Diltiazem 25 MG/5 ML SDV IVPUSH ONE (10:37)
[2020-05-26 11:04] VITALS: BP 122/84
== END 2020-05-26 12:51 | disposition home or self-care (01) ==
LOC: JP.ED 06:15
DX: I48.91 Unspecified atrial fibrillation (principal); R00.0 Tachycardia, unspecified; I10 Essential (primary) hypertension; M10.9 Gout, unspecified; Z79.82 Long term (current) use of aspirin; Z79.899 Other long term (current) drug therapy; Z79.01 Long term (current) use of anticoagulants; Z86.73 Personal history of transient ischemic attack (TIA), and cerebral infarction without residual deficits; Z91.048 Other nonmedicinal substance allergy status
CPT/HCPCS: 36415; 71045; 80053; 83880; 84484; 85027; 85610; 93005; 96365; 96375; 99285; A9270; J3490; 93010

== ENCOUNTER 2020-07-16 13:57 | Emergency (ER) | payer MEDICARE ==
--- NOTE | 2020-07-16 15:12 | EDM.PDOC ---
ED HPI GENERAL MEDICAL PROBLEM - General Chief Complaint: Cardiovascular Problem Stated Complaint: WEAKNESS TIRED HURTS WHEN PASS URINE Time Seen by Provider: 07/16/20 15:00 Source of Information: Reports: Patient, RN History Limitations: Reports: No Limitations - History of Present Illness INITIAL COMMENTS - FREE TEXT/NARRATIVE: 69-year-old male comes now because his neighbor checked his blood pressure and he was blood pressure was about 90/70 and he was concerned about having a night and needed one half to come in at night. Otherwise has been feeling relatively well except that he feels he may have a recurrent urinary tract infection because of some possible dysuria. Has a history of UTI. Also complains he recently had a stent removed of his liver apparently after his last visit here in the emergency department. Said he also felt little funny last few days but nothing specific. Is also concerned about a possible tooth problem that might be causing his infection and generalized not feeling well. However the at the moment he is feeling all right - Related Data Allergies Allergy/AdvReac Type Severity Reaction Status Date / Time enviromental Allergy Other Uncoded 07/16/20 14:12 Home Meds: Home Meds Acetaminophen 1,000 mg PO ASDIRECTED PRN 05/06/16 [History] Aspirin [Obed Chewable Aspirin] 81 mg PO DAILY 07/08/17 [History] Warfarin [Coumadin] 5 mg PO DAILY #30 tab 07/09/17 [Rx] Metoprolol Tartrate 1.5 tab PO DAILY 06/15/18 [History] Metoprolol Tartrate 25 mg PO BEDTIME 05/26/20 [History] Past Medical History HEENT History: Reports: Impaired Vision Cardiovascular History: Reports: Afib, High Cholesterol, Hypertension Gastrointestinal History: Reports: None, Diverticulosis Genitourinary History: Reports: BPH Musculoskeletal History: Reports: Arthritis, Gout Neurological History: Reports: TIA Hematologic History: Reports: Anticoagulation Therapy Oncologic (Cancer) History: Reports: Prostate - Infectious Disease History Infectious Disease History: Reports: Chicken Pox, Measles, Mumps, Pertussis (Whooping Cough) - Past Surgical History Head Surgeries/Procedures: Reports: None HEENT Surgical History: Reports: None Cardiovascular Surgical History: Reports: None GI Surgical History: Reports: Cholecystectomy, Colonoscopy Male Surgical History: Reports: Prostate Biopsy, Prostatectomy, TURP- Transurethral Resection of Prostate Neurological Surgical History: Reports: None Musculoskeletal Surgical History: Reports: None Oncologic Surgical History: Reports: None Dermatological Surgical History: Reports: None Social & Family History - Family History Cardiac: Reports: CAD, Heart Failure Oncologic: Reports: Prostate - Tobacco Use Tobacco Use Status *Q: Former Tobacco User Used Tobacco, but Quit: No Month/Year Tobacco Last Used: 1981 Second Hand Smoke Exposure: No - Caffeine Use Caffeine Use: Reports: Coffee, Soda - Recreational Drug Use Recreational Drug Use: No ED ROS GENERAL - Review of Systems Review Of Systems: See Below Constitutional: Reports: No Symptoms (10 systems reviewed and he has little issues in multiple systems but nothing that appears acute) ED EXAM, GENERAL - Physical Exam Exam: See Below Free Text/Narrative:: Alert cooperative 69-year-old male lying on a gurney. A bit anxious and hyper but otherwise having no acute problems. HEENT shows eyes ears nose and throat are okay. He does have teeth missing but no percussion pain inducing problems in the right jaw. Gums are a bit hyperemic. Neck is supple normal range of motion Chest is clear with a regular rate and rhythm with no abnormal sounds Abdomen soft active bowel sounds nontender Skin extremities appear normal without deformity or edema Neurologic is physiologic Exam Limited By: No Limitations Course - Vital Signs Text/Narrative:: 69-year-old with multiple complaints mostly anxiety related has normal lab tests and normal urine today and is reassured Last Recorded V/S: Last Vital Signs Temp 36.6 C 07/16/20 14:14 Pulse 93 07/16/20 16:44 Resp 17 07/16/20 14:14 BP 126/90 07/16/20 16:44 Pulse Ox 97 07/16/20 16:44 - Orders/Labs/Meds Labs: Laboratory Tests 07/16/20 07/16/20 07/16/20 Range/Units 15:10 16:20 16:20 WBC 7.6 (4.5-11.0) K/uL RBC 6.13 H (4.30-5.90) M/uL Hgb 15.8 H D (12.0-15.0) g/dL Hct 51.0 (40.0-54.0) % MCV 83 (80-98) fL MCH 26 L (27-31) pg MCHC 31 L (32-36) % Plt Count 275 (150-400) K/uL Sodium 139 L (140-148) mmol/L Potassium 4.8 (3.6-5.2) mmol/L Chloride 104 (100-108) mmol/L Carbon Dioxide 28 (21-32) mmol/L Anion Gap 11.8 (5.0-14.0) mmol/L BUN 27 H D (7-18) mg/dL Creatinine 1.4 H (0.8-1.3) mg/dL Est Cr Clr Drug Dosing 51.54 mL/min Estimated GFR (MDRD) 50 L (>60) Glucose 98 (74-106) mg/dL Calcium 9.2 (8.5-10.1) mg/dL Total Bilirubin 0.6 D (0.2-1.0) mg/dL AST 25 (15-37) U/L ALT 33 (12-78) U/L Alkaline Phosphatase 100 (46-116) U/L Total Protein 7.7 (6.4-8.2) g/dL Albumin 3.3 L (3.4-5.0) g/dL Globulin 4.4 H (2.3-3.5) g/dL Albumin/Globulin Ratio 0.8 L (1.2-2.2) Urine Color Yellow (YELLOW) Urine Appearance Clear (CLEAR) Urine pH 6.0 (5.0-8.0) Ur Specific [place] >= 1.030 (1.008-1.030) Urine Protein Trace H (NEGATIVE) mg/dL Urine Glucose (UA) Negative (NEGATIVE) mg/dL Urine Ketones Trace H (NEGATIVE) mg/dL Urine Occult Blood Negative (NEGATIVE) Urine Nitrite Negative (NEGATIVE) Urine Bilirubin Negative (NEGATIVE) Urine Urobilinogen 1.0 (0.2-1.0) EU/dL Ur Leukocyte Esterase Negative (NEGATIVE) Urine RBC 0-5 (0-5) Urine WBC 0-5 (0-5) Ur Epithelial Cells Rare Amorphous Sediment Rare Urine Bacteria Rare Urine Mucus Rare Urine Other Departure - Departure Time of Disposition: 17:10 Disposition: Home, Self-Care 01 Condition: Good Clinical Impression: Anxiety Referrals: Ej Harmon MD [Primary Care Provider] - Forms: ED Department Discharge Additional Instructions: Follow-up with your physician and return for new or worse symptoms Sepsis Event Note (ED) - Evaluation Sepsis Screening Result: No Definite Risk - Focused Exam Vital Signs: Vital Signs Temp Pulse Resp BP Pulse Ox 07/16/20 16:44 93 126/90 97 07/16/20 16:14 96 122/86 07/16/20 15:10 78 124/85 96 07/16/20 14:40 136/64 07/16/20 14:14 36.6 C 74 17 124/87 97
[2020-07-16 16:45] VITALS: BP 126/90; PULSE 93
== END 2020-07-16 17:26 | disposition home or self-care (01) ==
LOC: JP.ED 13:57
DX: F41.9 Anxiety disorder, unspecified (principal); I48.91 Unspecified atrial fibrillation; I10 Essential (primary) hypertension; M10.9 Gout, unspecified; Z87.891 Personal history of nicotine dependence; Z91.048 Other nonmedicinal substance allergy status; Z79.01 Long term (current) use of anticoagulants; Z79.82 Long term (current) use of aspirin; Z79.899 Other long term (current) drug therapy
CPT/HCPCS: 36415; 80053; 81001; 85027; 99282; 99283

== ENCOUNTER 2021-04-19 11:13 | Inpatient (IN) | payer MEDICARE ==
[2021-04-19] MEDS ORDERED: Sodium Chloride 0.9% 10 ML Syringe FLUSH PRN (12:17)
[2021-04-19] MEDS ORDERED: Polyethylene Glycol 3350 Powder 17 GM Packet PO PRN (12:17)
[2021-04-19] MEDS ORDERED: Ondansetron 4 MG/2 ML SDV IV PRN (12:17)
--- NOTE | 2021-04-19 12:25 | PCM.HP.2 ---
H&P History of Present Illness - General Date of Service: 04/19/21 Admit Problem/Dx: Admission Diagnosis/Problem Admission Diagnosis/Problem Atrial fibrillation Source of Information: Patient, Provider History Limitations: Reports: No Limitations - History of Present Illness Initial Comments - Free Text/Narative: Mr. Swenson is a 70-year-old gentleman who was admitted this a direct admission from the clinic for further management of atrial fibrillation. He has had a history of paroxysmal atrial fibrillation for the past several years. He thinks that he has been in atrial fibrillation continuously over the past 2 years. He takes metoprolol which works well for rate control. He was in to see cardiology today and they suggested that he be admitted to initiate therapy with sotalol and to proceed with a cardioversion. He has been feeling relatively well and denies any symptoms of chest pain or pressure shortness of breath palpitations or lightheadedness. - Related Data Allergies/Adverse Reactions: Allergies Allergy/AdvReac Type Severity Reaction Status Date / Time enviromental Allergy Other Uncoded 04/19/21 12:27 Home Medications: Home Meds Acetaminophen 1,000 mg PO ASDIRECTED PRN 05/06/16 [History] Aspirin [Obed Chewable Aspirin] 81 mg PO DAILY 07/08/17 [History] Warfarin [Coumadin] 5 mg PO DAILY #30 tab 07/09/17 [Rx] Metoprolol Tartrate 1.5 tab PO DAILY 06/15/18 [History] Metoprolol Tartrate 25 mg PO BEDTIME 05/26/20 [History] Past Medical History HEENT History: Reports: Impaired Vision Cardiovascular History: Reports: Afib, High Cholesterol, Hypertension Gastrointestinal History: Reports: None, Diverticulosis Genitourinary History: Reports: BPH Musculoskeletal History: Reports: Arthritis, Gout Neurological History: Reports: TIA Hematologic History: Reports: Anticoagulation Therapy Oncologic (Cancer) History: Reports: Prostate - Infectious Disease History Infectious Disease History: Reports: Chicken Pox, Measles, Mumps, Pertussis (Whooping Cough) - Past Surgical History Head Surgeries/Procedures: Reports: None HEENT Surgical History: Reports: None Cardiovascular Surgical History: Reports: None GI Surgical History: Reports: Cholecystectomy, Colonoscopy Male Surgical History: Reports: Prostate Biopsy, Prostatectomy, TURP- Transurethral Resection of Prostate Neurological Surgical History: Reports: None Musculoskeletal Surgical History: Reports: None Oncologic Surgical History: Reports: None Dermatological Surgical History: Reports: None Social & Family History - Family History Family Medical History: No Pertinent Family History Cardiac: Reports: CAD, Heart Failure Oncologic: Reports: Prostate - Tobacco Use Tobacco Use Status *Q: Never Tobacco User Second Hand Smoke Exposure: No - Caffeine Use Caffeine Use: Reports: Coffee - Alcohol Use Days Per Week of Alcohol Use: 3 Number of Drinks Per Day: 1 Total Drinks Per Week: 3 Date of Last Drink: 04/15/21 Time of Last Drink: 02:00 - Recreational Drug Use Recreational Drug Use: No H&P Review of Systems - Review of Systems: Review Of Systems: See Below General: Reports: No Symptoms HEENT: Reports: No Symptoms Pulmonary: Reports: No Symptoms Cardiovascular: Reports: No Symptoms Gastrointestinal: Reports: No Symptoms Genitourinary: Reports: No Symptoms Musculoskeletal: Reports: No Symptoms Skin: Reports: No Symptoms Psychiatric: Reports: No Symptoms Neurological: Reports: No Symptoms Hematologic/Lymphatic: Reports: No Symptoms Immunologic: Reports: No Symptoms Exam - Exam Exam: See Below - Vital Signs Vital Signs: Last Vital Signs Temp 98.0 F 04/19/21 12:00 Pulse 67 04/19/21 12:00 Resp 18 04/19/21 12:00 BP 166/98 H 04/19/21 12:00 Pulse Ox 99 04/19/21 12:00 Weight: 180 lb - Exam Quality Assessment: DVT Prophylaxis General: Alert, Oriented, Cooperative HEENT: Conjunctiva Clear, Hearing Intact, Mucosa Moist & [place], Normal Nasal Septum, Posterior Pharynx Clear, Pupils Equal Neck: Supple, Trachea Midline, +2 Carotid Pulse wo Bruit Lungs: Clear to Auscultation, Normal Respiratory Effort Cardiovascular: Regular Rate, Normal S1, Normal S2, Irregular Rhythm, Systolic Murmur. No: Diastolic Murmur GI/Abdominal Exam: Soft, Non-Tender, No Organomegaly, No Distention Back Exam: Normal Inspection, Full Range of Motion Extremities: Non-Tender, No Pedal Edema Skin: Warm, Dry, Intact Neurological: Cranial Nerves Intact, Strength Equal Bilateral, Normal Speech, Normal Tone, Sensation Intact. No: Focal Deficit Neuro Extensive - Mental Status: Alert, Oriented x3, Normal Mood/Affect, Normal Cognition, Memory Intact - Patient Data Result Diagrams: 04/19/21 12:42 04/19/21 12:42 Sepsis Event Note - Focused Exam Vital Signs: Vital Signs Temp Pulse Resp BP Pulse Ox 04/19/21 12:00 98.0 F 67 18 166/98 H 99 *Q Meaningful Use (ADM) - VTE *Q VTE Pharmacological Contraindications *Q: High INR Value - VTE Risk Assess *Q Each Risk Factor Represents 1 Point: Obesity ( BMI > 25 kg/m2) Total Score 1 Point Risk Factors: 1 Each Risk Factor Represents 2 Points: Age 60 - 74 Years Total Score 2 Point Risk Factors: 2 Each Risk Factor Represents 3 Points: None Total Score 3 Point Risk Factors: 0 Each Risk Factor Represents 5 Points: None Total Score 5 Point Risk Factors: 0 Venous Thromboembolism Risk Factor Score *Q: 3 Problem List Initiated/Reviewed/Updated: Yes Orders Last 24hrs: Active Orders 24 hr Category Date Time Status Patient Status [ADT] Routine ADT 04/19/21 12:15 Ordered Ambulate [RC] QID Care 04/19/21 12:15 Ordered Cardiac Monitoring [RC] .As Directed Care 04/19/21 12:16 Ordered EKG Documentation Completion [RC] ASDIRECTED Care 04/19/21 12:19 Ordered EKG Documentation Completion [RC] ASDIRECTED Care 04/19/21 12:24 Ordered EKG Documentation Completion [RC] STAT Care 04/19/21 21:00 Ordered Height and Weight [RC] DAILY Care 04/19/21 12:15 Ordered Intake and Output [RC] QSHIFT Care 04/19/21 12:15 Ordered Notify Provider Vital Signs [RC] ASDIRECTED Care 04/19/21 12:15 Ordered Oxygen Therapy [RC] PRN Care 04/19/21 12:15 Ordered Up to Chair [RC] QID Care 04/19/21 12:15 Ordered VTE/DVT Education [RC] Per Unit Routine Care 04/19/21 12:15 Ordered Vital Signs [RC] Q4H Care 04/19/21 12:15 Ordered Nothing per Oral After Midnight Diet [DIET] Diet 04/20/21 Breakfast Ordered Regular Diet [DIET] Diet 04/19/21 Lunch Ordered BASIC METABOLIC PANEL,BMP [CHEM] Timed Lab 04/20/21 05:00 Ordered CBC WITH AUTO DIFF [HEME] Stat Lab 04/19/21 12:17 Ordered COMPREHENSIVE METABOLIC PN,CMP [CHEM] Stat Lab 04/19/21 12:17 Ordered INR,PT,PROTHROMBIN TIME [COAG] AM Lab 04/20/21 05:11 Ordered INR,PT,PROTHROMBIN TIME [COAG] Stat Lab 04/19/21 12:14 Ordered MAGNESIUM [CHEM] Stat Lab 04/19/21 12:17 Ordered Acetaminophen [TylenoL] Med 04/19/21 12:17 Ordered 650 mg PO Q4H PRN Aspirin Med 04/20/21 09:00 Ordered 81 mg PO DAILY Ondansetron [Zofran] Med 04/19/21 12:17 Ordered 4 mg IV Q4H PRN Sodium Chloride 0.9% [Saline Flush] Med 04/19/21 12:17 Ordered 10 ml FLUSH ASDIRECTED PRN Sotalol [Betapace] Med 04/19/21 12:30 Ordered 120 mg PO BID Warfarin [Coumadin] Med 04/20/21 09:00 Ordered 5 mg PO DAILY polyethylene glycoL 3350 [MiraLAX] Med 04/19/21 12:17 Ordered 17 gm PO DAILY PRN Saline Lock Insert [OM.PC] Routine Oth 04/19/21 12:17 Ordered VTE Pharmacological Contraindications [AST] Per Unit Oth 04/19/21 12:15 Ordered Routine Resuscitation Status Routine Resus Stat 04/19/21 12:15 Ordered EKG 12 Lead [EK] Stat Ther 04/19/21 12:17 Ordered EKG 12 Lead [EK] Stat Ther 04/20/21 08:00 Ordered Medication Orders Acetaminophen (Acetaminophen 325 Mg Tab) 650 mg PO Q4H PRN PRN Reason: Pain (Mild 1-3)/fever Aspirin (Aspirin 81 Mg Tab.Chew) 81 mg PO DAILY [facility] Ondansetron HCl (Ondansetron 4 Mg/2 Ml Sdv) 4 mg IV Q4H PRN PRN Reason: Nausea/Vomiting Polyethylene Glycol (Polyethylene Glycol 3350 Powder 17 Gm Packet) 17 gm PO DAILY PRN PRN Reason: Constipation Sodium Chloride (Sodium Chloride 0.9% 10 Ml Syringe) 10 ml FLUSH ASDIRECTED PRN PRN Reason: Keep Vein Open Sotalol HCl (Sotalol 80 Mg Tab) 120 mg PO BID [facility] Warfarin Sodium (Warfarin 5 Mg Tab) 5 mg PO DAILY [facility] Assessment/Plan Comment:: ASSESSMENT AND PLAN ATRIAL FIBRILLATION-admitted as a direct admission from the clinic to initiate therapy with sotalol while being monitored and to proceed with electrical cardioversion. -Hold metoprolol -radiation monitor to watch for QT prolongation -Continue anticoagulation with warfarin -EKG twice daily -Sotalol 120 mg p.o. twice daily -N.p.o. after midnight -Elective electrical cardioversion in a.m. HISTORY OF PREVIOUS CVA-no significant residual physical effect or deficit MAINTENANCE ISSUES -DVT prophylaxis; current therapy with warfarin should provide adequate DVT prophylaxis -GI prophylaxis; not indicated -Tubbs catheter; not indicated -Nutrition; regular diet, n.p.o. after midnight -Nicotine dependence; not required CODE STATUS-FULL CODE ADMISSION STATUS-patient will be admitted to inpatient status, expect at least a 2 night hospital stay for evaluation and management of problems as outlined above. At the time of this admission I do not reasonably expected evaluation and management of this problem will require more than a 96 hour hospital stay. DISPOSITION-anticipate discharge to home after the hospital stay. PRIMARY CARE PROVIDER-Dr. Harmon - Mortality Measure Prognosis:: Good
[2021-04-19] MEDS: Sotalol 80 MG Tab PO SCH ×2 (14:37→21:02)
[2021-04-19] MEDS: Acetaminophen 325 MG Tab PO PRN (21:16)
[2021-04-20] MEDS ORDERED: Propofol 200 MG/20 ML SDV ONE (08:58)
[2021-04-20] MEDS: Aspirin 81 MG Tab.Chew PO SCH ×2 (09:36→14:19)
[2021-04-20] MEDS: Sotalol 80 MG Tab PO SCH ×2 (09:40→21:34)
--- NOTE | 2021-04-20 13:44 | PCM.OPNOTE ---
- General Post-Op/Procedure Note Date of Surgery/Procedure: 04/20/21 Operative Procedure(s): Elective electrical cardioversion Pre Op Diagnosis: Atrial fibrillation Post-Op Diagnosis: Same Anesthesia Technique: Moderate Sedation Primary Surgeon: Xander Mayer Anesthesia Provider: Xander Criag Complications: None Condition: Good Free Text/Narrative:: Mr. Dyson is a 70-year-old gentleman who was brought down to the [facility] for attempted electrical cardioversion. He is currently hospitalized for his atrial fibrillation and initiation of sotalol therapy for monitoring of QT prolongation and pro arrhythmic effect. Risks and goals of the procedure were reviewed with the patient and he has given informed consent to proceed. IV sedation was provided by Mr. Apariciolinda from the anesthesia department. Timeout was held prior to the procedure to confirm right patient and right procedure. After adequate sedation was achieved he was cardioverted using 200 J of energy delivered in a synchronized fashion. This did result in conversion to sinus rhythm but only lasted a minute or 2 before he went back into atrial fibrillation. He was recovered in the [facility] and then transferred back to his inpatient room.
--- NOTE | 2021-04-20 13:48 | PCM.PN ---
- General Info Date of Service: 04/20/21 Subjective Update: Mr. Swenson has been stable since admission yesterday. He was taken to [facility] earlier this morning for attempted electrical cardioversion, this was successful in converting him to sinus rhythm but within a minute or 2 he did go back into atrial fibrillation. He has tolerated the sotalol thus far without significant difficulty or evidence of QT prolongation. - Review of Systems General: Reports: No Symptoms Pulmonary: Reports: No Symptoms Cardiovascular: Reports: No Symptoms Gastrointestinal: Reports: No Symptoms Genitourinary: Reports: No Symptoms - Patient Data Vitals - Most Recent: Last Vital Signs Temp 96.4 F L 04/20/21 12:11 Pulse 77 04/20/21 12:11 Resp 16 04/20/21 12:11 BP 154/81 H 04/20/21 12:11 Pulse Ox 100 04/20/21 12:11 Weight - Most Recent: 180 lb I&O - Last 24 Hours: Intake & Output 04/19/21 04/20/21 04/20/21 22:59 06:59 14:59 Intake Total 300 575 Balance 300 575 Lab Results Last 24 Hours: Laboratory Results - last 24 hr 04/20/21 04/20/21 Range/Units 05:53 05:53 PT 21.3 H (9.2-10.6) sec INR 2.1 Sodium 138 L (140-148) mmol/L Potassium 4.1 (3.6-5.2) mmol/L Chloride 103 (100-108) mmol/L Carbon Dioxide 27 (21-32) mmol/L Anion Gap 12.1 (5.0-14.0) mmol/L BUN 15 (7-18) mg/dL Creatinine 1.1 (0.8-1.3) mg/dL Est Cr Clr Drug Dosing 62.68 mL/min Estimated GFR (MDRD) > 60 (>60) Glucose 82 (74-106) mg/dL Calcium 8.5 (8.5-10.1) mg/dL Med Orders - Current: Current Medications Acetaminophen (Acetaminophen 325 Mg Tab) 650 mg PO Q4H PRN PRN Reason: Pain (Mild 1-3)/fever Last Admin: 04/19/21 21:16 Dose: 650 mg Documented by: Aspirin (Aspirin 81 Mg Tab.Chew) 81 mg PO DAILY [facility] Last Admin: 04/20/21 09:36 Dose: Not Given Documented by: Ondansetron HCl (Ondansetron 4 Mg/2 Ml Sdv) 4 mg IV Q4H PRN PRN Reason: Nausea/Vomiting Polyethylene Glycol (Polyethylene Glycol 3350 Powder 17 Gm Packet) 17 gm PO DAILY PRN PRN Reason: Constipation Sodium Chloride (Sodium Chloride 0.9% 10 Ml Syringe) 10 ml FLUSH ASDIRECTED PRN PRN Reason: Keep Vein Open Sotalol HCl (Sotalol 80 Mg Tab) 120 mg PO BID [facility] Last Admin: 04/20/21 09:40 Dose: 120 mg Documented by: Warfarin Sodium (Warfarin 5 Mg Tab) 5 mg PO DAILY@1300 [facility] Discontinued Medications Propofol (Propofol 200 Mg/20 Ml Sdv) Confirm Administered Dose 200 mg .ROUTE .[facility]-MED ONE Stop: 04/20/21 08:59 - Exam Quality Assessment: DVT Prophylaxis General: Alert, Oriented, Cooperative, No Acute Distress Lungs: Clear to Auscultation, Normal Respiratory Effort Cardiovascular: Regular Rate, Irregular Rhythm, Murmurs GI/Abdominal Exam: Soft, Non-Tender, No Organomegaly, No Distention Extremities: Non-Tender, No Pedal Edema - Patient Data Lab Results Last 24 hrs: Laboratory Results - last 24 hr 04/20/21 04/20/21 Range/Units 05:53 05:53 PT 21.3 H (9.2-10.6) sec INR 2.1 Sodium 138 L (140-148) mmol/L Potassium 4.1 (3.6-5.2) mmol/L Chloride 103 (100-108) mmol/L Carbon Dioxide 27 (21-32) mmol/L Anion Gap 12.1 (5.0-14.0) mmol/L BUN 15 (7-18) mg/dL Creatinine 1.1 (0.8-1.3) mg/dL Est Cr Clr Drug Dosing 62.68 mL/min Estimated GFR (MDRD) > 60 (>60) Glucose 82 (74-106) mg/dL Calcium 8.5 (8.5-10.1) mg/dL Result Diagrams: 04/19/21 12:42 04/20/21 05:53 Sepsis Event Note - Evaluation Sepsis Screening Result: No Definite Risk - Focused Exam Vital Signs: Vital Signs Temp Pulse Pulse Resp BP BP Pulse Ox 04/20/21 12:11 96.4 F L 77 16 154/81 H 100 04/20/21 09:54 96.3 F L 66 16 147/105 H 04/20/21 09:40 57 L 150/113 H 04/20/21 09:22 96.2 F L 75 16 138/90 94 L 04/20/21 09:10 97.2 F 72 18 137/99 H 96 04/20/21 09:05 68 18 142/101 H 97 04/20/21 09:01 74 18 119/82 98 04/20/21 08:56 78 16 111/81 98 04/20/21 08:50 65 14 130/91 H 96 04/20/21 08:46 85 16 160/118 H 100 04/20/21 08:42 97.2 F 82 16 171/116 H 100 04/20/21 08:21 96.1 F L 71 22 H 151/99 H 96 04/20/21 04:00 96.0 F L 55 L 16 139/97 H 97 - Problem List Review Problem List Initiated/Reviewed/Updated: Yes - My Orders Last 24 Hours: My Active Orders 04/20/21 08:00 EKG 12 Lead [EK] Stat 04/20/21 09:00 Aspirin 81 mg PO DAILY 04/20/21 Lunch Regular Diet [DIET] 04/20/21 13:00 Warfarin [Coumadin] 5 mg PO DAILY@1300 04/20/21 13:45 EKG Documentation Completion [RC] ASDIRECTED 04/21/21 05:00 INR,PT,PROTHROMBIN TIME [COAG] Timed 04/21/21 05:11 EKG 12 Lead [EK] AM - Plan Plan:: ASSESSMENT AND PLAN ATRIAL FIBRILLATION-admitted as a direct admission from the clinic to initiate therapy with sotalol while being monitored for QT prolongation and proarrhythmic effect. Attempted electrical cardioversion this morning was successful in converting him to sinus rhythm but lasted only a few minutes and he then went back into atrial fibrillation. -Hold metoprolol -nurse monitoring to watch for QT prolongation -Continue anticoagulation with warfarin -EKG daily -Sotalol 120 mg p.o. twice daily HISTORY OF PREVIOUS CVA-no significant residual physical effect or deficit MAINTENANCE ISSUES -DVT prophylaxis; current therapy with warfarin should provide adequate DVT prophylaxis -GI prophylaxis; not indicated -Tubbs catheter; not indicated -Nutrition; regular diet, n.p.o. after midnight -Nicotine dependence; not required CODE STATUS-FULL CODE ADMISSION STATUS-patient will be admitted to inpatient status, expect at least a 2 night hospital stay for evaluation and management of problems as outlined above. At the time of this admission I do not reasonably expected evaluation an d management of this problem will require more than a 96 hour hospital stay. DISPOSITION-anticipate discharge to home after the hospital stay. PRIMARY CARE PROVIDER-Dr. Harmon
[2021-04-20] MEDS: Warfarin 5 MG Tab PO SCH (14:19)
--- NOTE | 2021-04-20 14:50 | PCM.EKG ---
#1 Interpretation EKG Date: 04/19/21 Time: 12:35 Rhythm: A-Fib Rate (Beats/Min): 67 [place]: Normal P-Wave: Absent QRS: Normal ST-T: Normal QT: Normal Comparison: NA - No Prior EKG EKG Interpretation Comments: Atrial fibrillation with controlled ventricular response, occasional PVC
[2021-04-21] MEDS: Sotalol 80 MG Tab PO SCH ×2 (08:21→22:18)
[2021-04-21] MEDS: Aspirin 81 MG Tab.Chew PO SCH (08:22)
[2021-04-21] MEDS: Warfarin 5 MG Tab PO SCH (13:15)
--- NOTE | 2021-04-21 18:06 | PCM.PN ---
- General Info Date of Service: 04/21/21 Subjective Update: Mr. Swenson since yesterday. Tolerating current therapy with sotalol, no significant increase noted thus far in QT interval. Functional Status: Reports: Tolerating Diet, Ambulating, Urinating - Review of Systems General: Reports: No Symptoms Pulmonary: Reports: No Symptoms Cardiovascular: Reports: No Symptoms Gastrointestinal: Reports: No Symptoms Genitourinary: Reports: No Symptoms - Patient Data Vitals - Most Recent: Last Vital Signs Temp 96.9 F 04/21/21 15:35 Pulse 84 04/21/21 15:35 Resp 18 04/21/21 15:35 BP 150/119 H 04/21/21 15:35 Pulse Ox 98 04/21/21 15:35 Weight - Most Recent: 180 lb I&O - Last 24 Hours: Intake & Output 04/21/21 04/21/21 04/21/21 06:59 14:59 22:59 Intake Total 700 450 Balance 700 450 Lab Results Last 24 Hours: Laboratory Results - last 24 hr 04/21/21 Range/Units 04:30 PT 17.9 H (9.2-10.6) sec INR 1.8 Med Orders - Current: Current Medications Acetaminophen (Acetaminophen 325 Mg Tab) 650 mg PO Q4H PRN PRN Reason: Pain (Mild 1-3)/fever Last Admin: 04/19/21 21:16 Dose: 650 mg Documented by: Aspirin (Aspirin 81 Mg Tab.Chew) 81 mg PO DAILY [facility] Last Admin: 04/21/21 08:22 Dose: 81 mg Documented by: Metoprolol Tartrate (Metoprolol Tartrate 25 Mg Tab) 12.5 mg PO Q12H [facility] Ondansetron HCl (Ondansetron 4 Mg/2 Ml Sdv) 4 mg IV Q4H PRN PRN Reason: Nausea/Vomiting Polyethylene Glycol (Polyethylene Glycol 3350 Powder 17 Gm Packet) 17 gm PO DAILY PRN PRN Reason: Constipation Sodium Chloride (Sodium Chloride 0.9% 10 Ml Syringe) 10 ml FLUSH ASDIRECTED PRN PRN Reason: Keep Vein Open Sotalol HCl (Sotalol 80 Mg Tab) 120 mg PO BID [facility] Last Admin: 04/21/21 08:21 Dose: 120 mg Documented by: Warfarin Sodium (Warfarin 5 Mg Tab) 5 mg PO DAILY@1300 [facility] Last Admin: 04/21/21 13:15 Dose: 5 mg Documented by: Discontinued Medications Propofol (Propofol 200 Mg/20 Ml Sdv) Confirm Administered Dose 200 mg .ROUTE .[facility]-MED ONE Stop: 04/20/21 08:59 - Exam Quality Assessment: DVT Prophylaxis General: Alert, Oriented, Cooperative, No Acute Distress Lungs: Clear to Auscultation, Normal Respiratory Effort Cardiovascular: Regular Rate, No Murmurs, Irregular Rhythm GI/Abdominal Exam: Soft, Non-Tender, No Organomegaly, No Distention Extremities: Non-Tender, No Pedal Edema - Patient Data Lab Results Last 24 hrs: Laboratory Results - last 24 hr 04/21/21 Range/Units 04:30 PT 17.9 H (9.2-10.6) sec INR 1.8 Result Diagrams: 04/19/21 12:42 04/20/21 05:53 Sepsis Event Note - Evaluation Sepsis Screening Result: No Definite Risk - Focused Exam Vital Signs: Vital Signs Temp Pulse Pulse Resp BP BP BP 04/21/21 15:35 96.9 F 84 18 04/21/21 11:38 138/97 H 04/21/21 11:36 95.5 F L 76 16 04/21/21 09:12 97.4 F 66 18 129/46 L 04/21/21 08:21 75 137/94 H 04/21/21 08:18 96.3 F L 75 16 137/94 H BP Pulse Ox 04/21/21 15:35 150/119 H 98 04/21/21 11:38 04/21/21 11:36 122/104 H 99 04/21/21 09:12 94 L 04/21/21 08:21 04/21/21 08:18 96 - Problem List Review Problem List Initiated/Reviewed/Updated: Yes - My Orders Last 24 Hours: My Active Orders 04/21/21 05:11 EKG 12 Lead [EK] AM 04/21/21 17:57 EKG Documentation Completion [RC] ASDIRECTED 04/21/21 21:00 Metoprolol Tartrate [Lopressor] 12.5 mg PO Q12H 04/22/21 05:00 INR,PT,PROTHROMBIN TIME [COAG] Timed 04/22/21 05:11 EKG 12 Lead [EK] AM - Plan Plan:: ASSESSMENT AND PLAN ATRIAL FIBRILLATION-admitted as a direct admission from the clinic to initiate therapy with sotalol while being monitored for QT prolongation and proarrhythmic effect. Attempted electrical cardioversion was successful in converting him to sinus rhythm but lasted only a few minutes and he then went back into atrial fibrillation. Heart rate remains under good control, diastolic pressure is elevated, will plan to restart metoprolol at a lower dose. -Metoprolol 12.5 mg p.o. twice daily -pvc monitor to watch for QT prolongation -Continue anticoagulation with warfarin -EKG daily -Sotalol 120 mg p.o. twice daily HISTORY OF PREVIOUS CVA-no significant residual physical effect or deficit MAINTENANCE ISSUES -DVT prophylaxis; current therapy with warfarin should provide adequate DVT prophylaxis -GI prophylaxis; not indicated -Tubbs catheter; not indicated -Nutrition; regular diet, n.p.o. after midnight -Nicotine dependence; not required CODE STATUS-FULL CODE ADMISSION STATUS-patient will be admitted to inpatient status, expect at least a 2 night hospital stay for evaluation and management of problems as outlined above. At the time of this admission I do not reasonably expected evaluation and management of this problem will require more than a 96 hour hospital stay. DISPOSITION-anticipate discharge to home after the hospital stay. PRIMARY CARE PROVIDER-Dr. Harmon
[2021-04-21] MEDS: Acetaminophen 325 MG Tab PO PRN (18:55)
[2021-04-21] MEDS: Metoprolol Tartrate 25 MG Tab PO SCH (22:21)
[2021-04-22] MEDS: Metoprolol Tartrate 25 MG Tab PO SCH (08:18)
[2021-04-22] MEDS: Sotalol 80 MG Tab PO SCH (08:18)
[2021-04-22] MEDS: Aspirin 81 MG Tab.Chew PO SCH (08:18)
[2021-04-22] MEDS: Acetaminophen 325 MG Tab PO PRN (08:23)
[2021-04-22 10:07] VITALS: BP 132/84; PULSE 48
--- NOTE | 2021-04-22 11:35 | PCM.DCSUM1 ---
Discharge Summary - Hospital Course Brief History: Mr. Swenson is a 70-year-old gentleman who was admitted as a direct admission from the clinic for initiation of sotalol therapy while being monitored as well as electrical cardioversion, for management of atrial fibrillation. - Discharge Data Discharge Date: 04/22/21 Discharge Disposition: Home, Self-Care 01 Condition: Good - Referral to Home Health Primary Care Physician: Ej Harmon MD - Discharge Diagnosis/Problem(s) (1) Atrial fibrillation SNOMED Code(s): 02808589 ICD Code: I48.91 - UNSPECIFIED ATRIAL FIBRILLATION Status: Acute Current Visit: Yes (2) On Coumadin for atrial fibrillation SNOMED Code(s): 77998649 ICD Code: I48.91 - UNSPECIFIED ATRIAL FIBRILLATION; Z79.01 - [employer] (CURRENT) USE OF ANTICOAGULANTS Status: Chronic Current Visit: No - Patient Summary/Data Operative Procedure(s) Performed: Elective electrical cardioversion Hospital Course: Mr. Swneson is a 70-year-old gentleman who was admitted as a direct admission from the clinic for further management of atrial fibrillation. He has had a history of paroxysmal atrial fibrillation for the past several years. He thinks that he has been in atrial fibrillation continuously over the past 2 years. He takes metoprolol which works well for rate control. He was in to see cardiology today and they suggested that he be admitted to initiate therapy with sotalol and to proceed with a cardioversion. He has been feeling relatively well and denies any symptoms of chest pain or pressure shortness of breath palpitations or lightheadedness. On admission he was started on sotalol 120 mg twice daily. He was kept n.p.o. after midnight and attempted cardioversion was done the next morning. He was converted to sinus rhythm but this lasted only a minute or 2 and he went back into atrial fibrillation. He was kept an additional 2 days for ongoing monitoring during initiation of sotalol therapy. He was kept on telemetry monitoring with no evidence of QT prolongation on monitor or on serial EKGs. He tolerated the sotalol well without obvious side effects. Initially on admission his metoprolol was held but he was noted to have borderline blood pressures. He will be on metoprolol 12.5 mg twice daily on discharge. He was continued on his anticoagulation with warfarin and INRs were monitored daily. Activity will be as tolerated and he will resume his usual diet. Follow-up appointment will be scheduled with his primary care provider within 1 week. He will also have scheduled follow-up appointment with Dr. Vences in the department of cardiology. - Patient Instructions Diet: Usual Diet as Tolerated Activity: As Tolerated Other/Special Instructions: Please schedule follow-up appointment with primary care provider within 1 week. Patient should already have scheduled follow-up appointment with Dr. Vences and also for echocardiogram. - Discharge Plan *PRESCRIPTION DRUG MONITORING PROGRAM REVIEWED*: Not Applicable *COPY OF PRESCRIPTION DRUG MONITORING REPORT IN PATIENT CRISTI: Not Applicable Prescriptions/Med Rec: Sotalol [Betapace] 120 mg PO BID #60 tablet Home Medications: Home Meds Acetaminophen 1,000 mg PO ASDIRECTED PRN 05/06/16 [History] Aspirin [Obed Chewable Aspirin] 81 mg PO DAILY 07/08/17 [History] Warfarin [Coumadin] 5 mg PO DAILY #30 tab 07/09/17 [Rx] Metoprolol Tartrate [Lopressor] 12.5 mg PO Q12H tablet 04/22/21 [Rx] Sotalol [Betapace] 120 mg PO BID #60 tablet 04/22/21 [Rx] Patient Handouts: Atrial Fibrillation, [id number] Referrals: Ej Harmon MD [Primary Care Provider] - 04/30/21 1:45 pm (Please arrive 15 minutes early to register for your appointment.) Luis Vences MD [Ordering Only Provider] - (A messge was sent to Dr. Vences for follow up appointment. [facility] will contact you with date and time of appointment. If you do not here from [facility] please call [phone]. ) - Discharge Summary/Plan Comment DC Time >30 min.: No Total # of Minutes for Discharge Time: 15 - Patient Data Vitals - Most Recent: Last Vital Signs Temp 96.6 F L 04/22/21 10:06 Pulse 48 L 04/22/21 10:06 Resp 18 04/22/21 10:06 BP 132/84 04/22/21 10:06 Pulse Ox 98 04/22/21 10:06 Weight - Most Recent: 180 lb I&O - Last 24 hours: Intake & Output 04/21/21 04/22/21 04/22/21 22:59 06:59 14:59 Intake Total 1050 360 Balance 1050 360 Lab Results - Last 24 hrs: Laboratory Results - last 24 hr 04/22/21 Range/Units 04:30 PT 21.1 H (9.2-10.6) sec INR 2.1 Med Orders - Current: Current Medications Acetaminophen (Acetaminophen 325 Mg Tab) 650 mg PO Q4H PRN PRN Reason: Pain (Mild 1-3)/fever Last Admin: 04/22/21 08:23 Dose: 650 mg Documented by: Aspirin (Aspirin 81 Mg Tab.Chew) 81 mg PO DAILY [facility] Last Admin: 04/22/21 08:18 Dose: 81 mg Documented by: Metoprolol Tartrate (Metoprolol Tartrate 25 Mg Tab) 12.5 mg PO Q12H [facility] Last Admin: 04/22/21 08:18 Dose: 12.5 mg Documented by: Ondansetron HCl (Ondansetron 4 Mg/2 Ml Sdv) 4 mg IV Q4H PRN PRN Reason: Nausea/Vomiting Polyethylene Glycol (Polyethylene Glycol 3350 Powder 17 Gm Packet) 17 gm PO DAILY PRN PRN Reason: Constipation Sodium Chloride (Sodium Chloride 0.9% 10 Ml Syringe) 10 ml FLUSH ASDIRECTED PRN PRN Reason: Keep Vein Open Sotalol HCl (Sotalol 80 Mg Tab) 120 mg PO BID [facility] Last Admin: 04/22/21 08:18 Dose: 120 mg Documented by: Warfarin Sodium (Warfarin 5 Mg Tab) 5 mg PO DAILY@1300 [facility] Last Admin: 04/21/21 13:15 Dose: 5 mg Documented by: Discontinued Medications Propofol (Propofol 200 Mg/20 Ml Sdv) Confirm Administered Dose 200 mg .ROUTE .STK-MED ONE Stop: 04/20/21 08:59 - Exam General: Reports: Alert, Oriented, Cooperative, No Acute Distress Lungs: Reports: Clear to Auscultation, Normal Respiratory Effort Cardiovascular: Reports: Regular Rate, Irregular Rhythm, Murmurs GI/Abdominal Exam: Soft, Non-Tender, No Organomegaly, No Distention *Q Meaningful Use (DIS) - VTE *Q VTE Pharmacological Contraindications *Q: High INR Value
== END 2021-04-22 13:10 | disposition home or self-care (01) | DRG 310 ==
LOC: JP.MS 11:13
PROVIDERS: ADMIT Hospitalist; ATTEND Hospitalist
PROC: 5A2204Z Restoration of Cardiac Rhythm, Single (ICD-10-PCS; principal; 2021-04-20)
DX: I48.91 Unspecified atrial fibrillation (principal); E78.5 Hyperlipidemia, unspecified; I10 Essential (primary) hypertension; N40.0 Benign prostatic hyperplasia without lower urinary tract symptoms; Z86.73 Personal history of transient ischemic attack (TIA), and cerebral infarction without residual deficits; Z79.01 Long term (current) use of anticoagulants; Z90.49 Acquired absence of other specified parts of digestive tract; Z90.79 Acquired absence of other genital organ(s); Z98.890 Other specified postprocedural states
CPT/HCPCS: 36415; 80048; 80053; 83735; 85025; 85610; 93005; A9270-GY; J2704